=== PATIENT | female | born 1980 | race Caucasian/White ===

== ENCOUNTER 2017-10-15 00:41 | Emergency (ER) | payer MEDICAID ==
[~2017-10-15] VITALS: Ht 162.6 cm; Wt 100.0 kg
[2017-10-15] MEDS ORDERED: KETOROLAC 60MG/2ML VIAL IM ONE (03:00)
[2017-10-15 05:33] VITALS: BP 114/71
== END 2017-10-15 05:55 | disposition home or self-care (01) ==
LOC: ER 00:41
DX: S83.411A Sprain of medial collateral ligament of right knee, initial encounter (principal); V89.2XXA Person injured in unspecified motor-vehicle accident, traffic, initial encounter; Y93.89 Activity, other specified; Y92.89 Other specified places as the place of occurrence of the external cause; Y99.8 Other external cause status; F12.10 Cannabis abuse, uncomplicated
CPT/HCPCS: 29505; 71045; 72170; 73562; 96372; 99284; J1885; Z7610